=== PATIENT | female | born 1940 | race Caucasian/White ===

== ENCOUNTER 2020-05-19 09:56 | Inpatient (IN) ==
[2020-05-19] MEDS ORDERED: Clindamycin 900 MG/50 ML 900 MG/50 ML IV.SOLN IVPB ONE (10:22)
[2020-05-19] MEDS: Ringers Solution, Lactated 1,000 ML IVC SCH ×2 (10:51→16:29)
[2020-05-19] MEDS ORDERED: Dexamethasone 4 MG/ML VIAL IVP ONE ×2 (11:29→17:31)
[2020-05-19] MEDS ORDERED: Famotidine 20 MG/2 ML VIAL IVP ONE (11:29)
[2020-05-19] MEDS ORDERED: Ondansetron 4 MG/2 ML VIAL IVP ONE (12:10)
[2020-05-19] MEDS ORDERED: *HR* FentaNYL (PF) 100 MCG/2 ML VIAL ONE ×2 (12:13→15:10)
[2020-05-19] MEDS ORDERED: *HR* Rocuronium Bromide 50 MG/5 ML VIAL ONE (12:13)
[2020-05-19] MEDS ORDERED: *HR* Propofol 200 MG/20 ML VIAL IVP ONE (12:13)
[2020-05-19] MEDS ORDERED: Lidocaine -MPF 2% 2 ML VIAL ONE (12:13)
[2020-05-19] MEDS ORDERED: Ondansetron 4 MG/2 ML VIAL ONE ×2 (13:32→16:06)
[2020-05-19] MEDS: *HR* FentaNYL (PF) 100 MCG/2 ML VIAL IVP PRN ×4 (15:26→15:43)
[2020-05-19] MEDS ORDERED: Ondansetron 4 MG/2 ML VIAL IVP PRN ×2 (15:30→17:31)
[2020-05-19] MEDS ORDERED: Ketorolac 15 MG/ML VIAL IVP PRN ×2 (15:30→17:31)
[2020-05-19] MEDS ORDERED: 0.9 % Sodium Chloride 1,000 ML IVC SCH (15:30)
[2020-05-19] MEDS ORDERED: Dexamethasone 4 MG/ML VIAL ONE (16:06)
[2020-05-19] MEDS ORDERED: Ketorolac 30 MG/ML VIAL ONE (16:06)
[2020-05-19] MEDS ORDERED: D5% in Water 500 ML ONE (16:14)
[2020-05-19] MEDS ORDERED: Ringers Solution, Lactated 1,000 ML IVC SCH (17:31)
[2020-05-19] MEDS ORDERED: *HR* FentaNYL (PF) 100 MCG/2 ML VIAL IVP PRN (17:31)
[2020-05-19] MEDS ORDERED: hydroCHLOROthiazide 25 MG TABLET PO PRN (17:31)
[2020-05-19] MEDS ORDERED: Acetaminophen IV 1,000 MG/100 ML INFUS..BTL IVPB SCH (18:00)
[2020-05-19] MEDS: Acetaminophen IV 1,000 MG/100 ML INFUS..BTL IVPB SCH (19:44)
[2020-05-19] MEDS: 0.9 % Sodium Chloride 1,000 ML IVC SCH (19:44)
[2020-05-20] MEDS: Acetaminophen IV 1,000 MG/100 ML INFUS..BTL IVPB SCH ×4 (02:50→20:23)
[2020-05-20 06:58] LABS: Basophils % 0.3 %; Hematocrit 39.6 % (35.3-44.9); Hemoglobin 13.4 g/dL (11.5-15.4); Immature Granulocytes % 0.3 % (0-4); Lymphocytes # 0.7 K/mcL (0.6-4.6); Lymphocytes % 6.5 %; Mean Corpuscular HGB Conc 33.8 g/dL (31.6-35.5); Mean Corpuscular Hemoglobin 32.9 pg (28.0-33.3); Mean Corpuscular Volume 97.3 fL (83.0-100.0); Mean Platelet Volume 9.9 fL (9.4-12.4); Monocytes # 0.7 K/mcL (0.0-1.3); Monocytes % 6.2 %; Neutrophils # 9.6 K/mcL (1.6-8.9); Platelet Count 232 K/mcL (140-400); Red Blood Count 4.07 M/mcL (3.82-4.97); Red Cell Distribution Width 11.9 % (11.5-14.5); Segmented Neutrophils % 86.7 %; White Blood Count 11.1 K/mcL (4.3-11.1)
[2020-05-20 07:21] LABS: BUN/Creatinine Ratio 43 (6-26); Blood Urea Nitrogen 20 mg/dL (8-23); Calcium 9.3 mg/dL (8.6-10.3); Carbon Dioxide 24 mEq/L (23-29); Chloride 107 mEq/L (98-107); Glucose 137 mg/dL (70-105); Osmolality,Calculated 289 (280-300); Potassium 3.4 mEq/L (3.5-5.1); Sodium 137 mEq/L (136-145); eGFR For African Americans > 60 (> 60); eGFR For Non-African Americans > 60 (> 60)
[2020-05-20] MEDS: Loratadine 10 MG TABLET PO SCH (09:54)
[2020-05-20] MEDS: (Potassium 99 MG) PO SCH (09:55)
[2020-05-20] MEDS: UBIDECARENONE 60 MG PO SCH (09:56)
[2020-05-20] MEDS: 0.9 % Sodium Chloride 1,000 ML IVC SCH (17:08)
[2020-05-21 01:52] LABS: BUN/Creatinine Ratio 41 (6-26); Blood Urea Nitrogen 20 mg/dL (8-23); Calcium 9.4 mg/dL (8.6-10.3); Carbon Dioxide 24 mEq/L (23-29); Chloride 109 mEq/L (98-107); Glucose 116 mg/dL (70-105); Osmolality,Calculated 290 (280-300); Potassium 3.5 mEq/L (3.5-5.1); Sodium 138 mEq/L (136-145); eGFR For African Americans > 60 (> 60); eGFR For Non-African Americans > 60 (> 60)
[2020-05-21] MEDS: Acetaminophen IV 1,000 MG/100 ML INFUS..BTL IVPB SCH ×3 (03:25→21:36)
[2020-05-21] MEDS: (Potassium 99 MG) PO SCH (09:18)
[2020-05-21] MEDS: Loratadine 10 MG TABLET PO SCH (09:18)
[2020-05-21] MEDS: UBIDECARENONE 60 MG PO SCH (09:19)
[2020-05-21] MEDS: 0.9 % Sodium Chloride 1,000 ML IVC SCH (09:49)
[2020-05-22] MEDS: Acetaminophen IV 1,000 MG/100 ML INFUS..BTL IVPB SCH ×4 (03:06→20:27)
[2020-05-22] MEDS: 0.9 % Sodium Chloride 1,000 ML IVC SCH (03:06)
[2020-05-22] MEDS: Loratadine 10 MG TABLET PO SCH (08:04)
[2020-05-22] MEDS ORDERED: polyethylene glycoL 3350 17 GM POWD.PACK PO SCH (09:45)
[2020-05-23] MEDS: Acetaminophen IV 1,000 MG/100 ML INFUS..BTL IVPB SCH (03:01)
[2020-05-23 07:37] VITALS: BP 128/84
[2020-05-23] MEDS: Loratadine 10 MG TABLET PO SCH (07:49)
[2020-05-23] MEDS ORDERED: polyethylene glycoL 3350 17 GM POWD.PACK PO SCH (09:00)
== END 2020-05-23 10:30 | disposition home health service (06) | DRG 337 ==
LOC: SAMDAY 09:56 → 3ANU 17:11
PROVIDERS: ADMIT Surgery; ATTEND Surgery

== ENCOUNTER 2020-05-26 18:04 | Inpatient (IN) ==
[2020-05-26 19:04] LABS: Basophils % 0.3 %; Hematocrit 38.4 % (35.3-44.9); Hemoglobin 12.7 g/dL (11.5-15.4); Immature Granulocytes % 1.2 % (0-4); Lymphocytes # 0.6 K/mcL (0.6-4.6); Lymphocytes % 5.8 %; Mean Corpuscular HGB Conc 33.1 g/dL (31.6-35.5); Mean Corpuscular Hemoglobin 31.9 pg (28.0-33.3); Mean Corpuscular Volume 96.5 fL (83.0-100.0); Mean Platelet Volume 9.2 fL (9.4-12.4); Monocytes # 0.9 K/mcL (0.0-1.3); Monocytes % 8.4 %; Neutrophils # 8.7 K/mcL (1.6-8.9); Platelet Count 276 K/mcL (140-400); Red Blood Count 3.98 M/mcL (3.82-4.97); Red Cell Distribution Width 11.8 % (11.5-14.5); Segmented Neutrophils % 84.3 %; White Blood Count 10.3 K/mcL (4.3-11.1)
[2020-05-26 19:35] LABS: Alanine Aminotransferase 19 Units/L (7-52); Albumin 3.2 g/dL (3.5-5.7); Albumin/Globulin Ratio 1.3 (1.1-2.2); Alkaline Phosphatase 73 Units/L (34-104); Aspartate Amino Transferase 13 Units/L (13-39); BUN/Creatinine Ratio 31 (6-26); Bilirubin,Direct 0.2 mg/dL (0.0-0.2); Bilirubin,Indirect 0.4 mg/dL (0.0-1.0); Bilirubin,Total 0.6 mg/dL (0.3-1.0); Blood Urea Nitrogen 13 mg/dL (8-23); Calcium 9.5 mg/dL (8.6-10.3); Carbon Dioxide 23 mEq/L (23-29); Chloride 103 mEq/L (98-107); Globulin 2.5 g/dL (2.4-3.5); Glucose 119 mg/dL (70-105); Lipase 4 Units/L (11-82); Osmolality,Calculated 283 (280-300); Potassium 3.4 mEq/L (3.5-5.1); Sodium 136 mEq/L (136-145); Total Protein 5.7 g/dL (6.4-8.9); eGFR For African Americans > 60 (> 60); eGFR For Non-African Americans > 60 (> 60)
[2020-05-26 19:52] LABS: Bacteria,Urine Many per hpf (None-Few); Bilirubin,Urine Negative (Negative); Blood,Urine Negative (Negative); Calcium Oxalate Crystals,Urine Present; Clarity,Urine Turbid (Clear); Color,Urine Yellow (Yellow); Glucose,Urine (UA) Normal (Normal); Ketones,Urine 80 mg/dL (Negative); Leukocyte Esterase,Urine Large (Negative); Mucus,Urine Many per lpf (None-Few); Nitrite,Urine Negative (Negative); Protein,Urine 50 mg/dL (Neg-Trace); Specific Gravity,Urine 1.024 (1.010-1.025); Squamous Epithelial Cell,Urine Few per hpf (None-Few); Transitional Epi Cells,Urine Few per hpf (None-Few); WBC,Urine 30-50 per hpf (0-3)
[2020-05-26] MEDS ORDERED: Piperacillin/Tazobactam 3.375 GM in Water for inj. (sterile) 20 ML IVP ONE (21:02)
[2020-05-26 21:12] LABS: Adenovirus Not Detected (Not Detect); Bordetella Pertussis Not Detected (Not Detect); Chlamydophila pneumoniae Not Detected (Not Detect); Coronavirus 229E Not Detected (Not Detect); Coronavirus HKU1 Not Detected (Not Detect); Coronavirus NL63 Not Detected (Not Detect); Coronavirus OC43 Not Detected (Not Detect); Human Metapneumovirus Not Detected (Not Detect); Human Rhinovirus/Enterovirus Not Detected (Not Detect); Influenza A Subtype 2009 H1 Not Detected (Not Detect); Influenza B Not Detected (Not Detect); Mycoplasma pneumoniae Not Detected (Not Detect); Parainfluenza Virus 1 Not Detected (Not Detect); Parainfluenza Virus 2 Not Detected (Not Detect); Parainfluenza Virus 3 Not Detected (Not Detect); Parainfluenza Virus 4 Not Detected (Not Detect); Respiratory Syncytial Virus Not Detected (Not Detect)
[2020-05-26 22:48] LABS: Magnesium 1.9 mg/dL (1.6-2.6); Phosphorous 2.3 mg/dL (2.7-4.5)
[2020-05-26] MEDS ORDERED: Naloxone 0.4 MG/ML INJ IVP PRN (23:32)
[2020-05-26 23:43] LABS: Troponin I 0.46 ng/mL (< 0.04)
[2020-05-27] MEDS ORDERED: 0.9 % Sodium Chloride 1,000 ML IVC SCH (02:15)
[2020-05-27 03:01] LABS: Basophils % 0.4 %; Hematocrit 32.9 % (35.3-44.9); Immature Granulocytes % 1.1 % (0-4); Lymphocytes # 0.8 K/mcL (0.6-4.6); Lymphocytes % 9.8 %; Mean Corpuscular HGB Conc 33.7 g/dL (31.6-35.5); Mean Corpuscular Hemoglobin 32.6 pg (28.0-33.3); Mean Corpuscular Volume 96.8 fL (83.0-100.0); Mean Platelet Volume 9.1 fL (9.4-12.4); Monocytes # 0.8 K/mcL (0.0-1.3); Monocytes % 9.3 %; Neutrophils # 6.5 K/mcL (1.6-8.9); Platelet Count 250 K/mcL (140-400); Red Cell Distribution Width 11.8 % (11.5-14.5); Segmented Neutrophils % 79.4 %; White Blood Count 8.2 K/mcL (4.3-11.1)
[2020-05-27 03:10] LABS: Hemoglobin 11.1 g/dL (11.5-15.4)
[2020-05-27] MEDS: Azithromycin 500 MG in 0.9 % Sodium Chloride 250 ML IVPB SCH (03:10)
[2020-05-27 03:11] LABS: INR 1.4; Prothrombin Time 15.7 Seconds (9.4-12.1)
[2020-05-27 03:23] LABS: BUN/Creatinine Ratio 33 (6-26); Blood Urea Nitrogen 13 mg/dL (8-23); Calcium 8.8 mg/dL (8.6-10.3); Carbon Dioxide 23 mEq/L (23-29); Chloride 103 mEq/L (98-107); Glucose 108 mg/dL (70-105); Magnesium 1.9 mg/dL (1.6-2.6); Osmolality,Calculated 283 (280-300); Phosphorous 2.6 mg/dL (2.7-4.5); Potassium 3.3 mEq/L (3.5-5.1); Sodium 136 mEq/L (136-145); eGFR For African Americans > 60 (> 60); eGFR For Non-African Americans > 60 (> 60)
[2020-05-27 03:26] LABS: Troponin I 0.35 ng/mL (< 0.04)
[2020-05-27] MEDS: Piperacillin/Tazobactam 3.375 GM in 0.9 % Sodium Chloride Mini Bag 100 ML IVPB SCH ×3 (05:36→21:21)
[2020-05-27] MEDS ORDERED: Aspirin 325 MG TABLET PO ONE (08:30)
[2020-05-27] MEDS: Lactobacillus 1 EACH CAP.SPRINK PO SCH (09:52)
[2020-05-27] MEDS: Loratadine 10 MG TABLET PO SCH (09:52)
[2020-05-27] MEDS: Ascorbic Acid 500 MG TABLET PO SCH (09:52)
[2020-05-27] MEDS: GLUCOSAMINE HCL 1000 MG PO SCH (09:53)
[2020-05-27] MEDS: UBIDECARENONE 60 MG PO SCH (09:53)
[2020-05-27] MEDS: Fish Oil 1,000 Mg Softgel PO SCH ×2 (09:53→21:22)
[2020-05-27] MEDS: Vitamin E 200 UNIT (90MG) CAPSULE PO SCH (10:14)
[2020-05-27] MEDS: Ondansetron ODT 4 MG TAB.RAPDIS SL PRN (18:16)
[2020-05-27 19:06] LABS: Adenovirus F 40/41 PCR Not detected (Not detect); Astrovirus PCR Not detected (Not detect); C.difficile Toxin A/B Gene PCR Not detected (Not detect); Campylobacter by PCR Not detected (Not detect); Cryptosporidium by PCR Not detected (Not detect); Cyclospora cayetanensis PCR Not detected (Not detect); E. coli O157 by PCR Not detected (Not detect); Entamoeba histolytica PCR Not detected (Not detect); Enteroaggregative E.coli(EAEC) Not detected (Not detect); Enteropathogenic E.coli(EPEC) Not detected (Not detect); Enterotoxigenic E.coli (ETEC) Not detected (Not detect); Giardia lamblia PCR Not detected (Not detect); Norovirus GI/GII PCR Not detected (Not detect); Plesiomonas shigelloides PCR Not detected (Not detect); Rotavirus A PCR Not detected (Not detect); Salmonella PCR Not detected (Not detect); Sapovirus PCR Not detected (Not detect); Shig/EnteroinvasiveE coli EIEC Not detected (Not detect); Shigalike tox-prod E coli STEC Not detected (Not detect); Vibrio PCR Not detected (Not detect); Vibrio cholerae PCR Not detected (Not detect); Yersinia enterocolitica PCR Not detected (Not detect)
[2020-05-28] MEDS: Azithromycin 500 MG in 0.9 % Sodium Chloride 250 ML IVPB SCH (02:59)
[2020-05-28] MEDS: Piperacillin/Tazobactam 3.375 GM in 0.9 % Sodium Chloride Mini Bag 100 ML IVPB SCH ×3 (05:39→21:41)
[2020-05-28 06:05] LABS: Basophils # 0.1 K/mcL (0.0-0.2); Basophils % 0.7 %; Hematocrit 38.9 % (35.3-44.9); Hemoglobin 12.2 g/dL (11.5-15.4); Immature Granulocytes % 1.4 % (0-4); Lymphocytes # 0.6 K/mcL (0.6-4.6); Lymphocytes % 7.5 %; Mean Corpuscular HGB Conc 31.4 g/dL (31.6-35.5); Mean Corpuscular Hemoglobin 31.9 pg (28.0-33.3); Mean Corpuscular Volume 101.8 fL (83.0-100.0); Mean Platelet Volume 9.7 fL (9.4-12.4); Monocytes # 0.8 K/mcL (0.0-1.3); Monocytes % 9.9 %; Neutrophils # 6.7 K/mcL (1.6-8.9); Platelet Count 228 K/mcL (140-400); Red Blood Count 3.82 M/mcL (3.82-4.97); Red Cell Distribution Width 11.9 % (11.5-14.5); Segmented Neutrophils % 80.5 %; White Blood Count 8.3 K/mcL (4.3-11.1)
[2020-05-28 06:20] LABS: Calcium 9.3 mg/dL (8.6-10.3); Potassium 3.7 mEq/L (3.5-5.1)
[2020-05-28] MEDS: Fish Oil 1,000 Mg Softgel PO SCH ×2 (08:39→21:49)
[2020-05-28] MEDS: Lactobacillus 1 EACH CAP.SPRINK PO SCH (08:39)
[2020-05-28] MEDS: Ascorbic Acid 500 MG TABLET PO SCH (08:39)
[2020-05-28] MEDS: GLUCOSAMINE HCL 1000 MG PO SCH (08:39)
[2020-05-28] MEDS: 0.9 % Sodium Chloride 1,000 ML IVC SCH ×2 (08:39→20:55)
[2020-05-28] MEDS: Loratadine 10 MG TABLET PO SCH (08:39)
[2020-05-28] MEDS: UBIDECARENONE 60 MG PO SCH (08:40)
[2020-05-28] MEDS: Vitamin E 200 UNIT (90MG) CAPSULE PO SCH (08:54)
[2020-05-28] MEDS: Ondansetron ODT 4 MG TAB.RAPDIS SL PRN (08:54)
[2020-05-28] MEDS ORDERED: 0.9 % Sodium Chloride 1,000 ML ONE (10:21)
[2020-05-28 14:01] LABS: Calcium 8.9 mg/dL (8.6-10.3); Potassium 3.5 mEq/L (3.5-5.1)
[2020-05-29] MEDS: Piperacillin/Tazobactam 3.375 GM in 0.9 % Sodium Chloride Mini Bag 100 ML IVPB SCH ×2 (05:09→18:39)
[2020-05-29] MEDS: 0.9 % Sodium Chloride 1,000 ML IVC SCH ×2 (05:10→16:05)
[2020-05-29] MEDS ORDERED: Acetaminophen 325 MG TABLET PO PRN (06:28)
[2020-05-29 07:09] LABS: Basophils # 0.1 K/mcL (0.0-0.2); Basophils % 0.7 %; Hematocrit 37.2 % (35.3-44.9); Hemoglobin 12.3 g/dL (11.5-15.4); Immature Granulocytes % 1.8 % (0-4); Lymphocytes # 0.6 K/mcL (0.6-4.6); Lymphocytes % 7.4 %; Mean Corpuscular HGB Conc 33.1 g/dL (31.6-35.5); Mean Corpuscular Hemoglobin 32.2 pg (28.0-33.3); Mean Corpuscular Volume 97.4 fL (83.0-100.0); Mean Platelet Volume 9.2 fL (9.4-12.4); Monocytes # 0.6 K/mcL (0.0-1.3); Monocytes % 7.5 %; Neutrophils # 7.1 K/mcL (1.6-8.9); Platelet Count 327 K/mcL (140-400); Red Blood Count 3.82 M/mcL (3.82-4.97); Segmented Neutrophils % 82.6 %; White Blood Count 8.6 K/mcL (4.3-11.1)
[2020-05-29] MEDS: Loratadine 10 MG TABLET PO SCH (08:05)
[2020-05-29] MEDS: Ascorbic Acid 500 MG TABLET PO SCH (08:05)
[2020-05-29] MEDS: Lactobacillus 1 EACH CAP.SPRINK PO SCH (08:05)
[2020-05-29] MEDS: Vitamin E 200 UNIT (90MG) CAPSULE PO SCH (08:05)
[2020-05-29] MEDS: GLUCOSAMINE HCL 1000 MG PO SCH (08:06)
[2020-05-29] MEDS: UBIDECARENONE 60 MG PO SCH (08:06)
[2020-05-29] MEDS: Fish Oil 1,000 Mg Softgel PO SCH (08:06)
[2020-05-29 08:26] LABS: Potassium 3.4 mEq/L (3.5-5.1)
[2020-05-29 11:53] LABS: Uric Acid 4.4 mg/dL (2.3-7.6)
[2020-05-29 13:58] LABS: Bilirubin,Urine Negative (Negative); Blood,Urine Negative (Negative); Clarity,Urine Clear (Clear); Color,Urine Light-Yellow (Yellow); Glucose,Urine (UA) Normal (Normal); Ketones,Urine Negative (Negative); Leukocyte Esterase,Urine Negative (Negative); Nitrite,Urine Negative (Negative); Protein,Urine Trace mg/dL (Neg-Trace); Urobilinogen,Urine Normal (Normal)
[2020-05-29] MEDS: Ondansetron ODT 4 MG TAB.RAPDIS SL PRN (18:39)
[2020-05-29 20:35] LABS: Protein/Creatinine Ratio,Urine 0.27 mg/mg (0.00-0.20)
[2020-05-30] MEDS: 0.9 % Sodium Chloride 1,000 ML IVC SCH ×3 (05:12→18:16)
[2020-05-30] MEDS: Piperacillin/Tazobactam 3.375 GM in 0.9 % Sodium Chloride Mini Bag 100 ML IVPB SCH ×2 (05:12→18:16)
[2020-05-30 09:30] LABS: Magnesium 1.9 mg/dL (1.6-2.6); Potassium 3.2 mEq/L (3.5-5.1)
[2020-05-30] MEDS: Loratadine 10 MG TABLET PO SCH (10:43)
[2020-05-30] MEDS: Ascorbic Acid 500 MG TABLET PO SCH (10:43)
[2020-05-30] MEDS: Lactobacillus 1 EACH CAP.SPRINK PO SCH (10:44)
[2020-05-30] MEDS: Vitamin E 200 UNIT (90MG) CAPSULE PO SCH (11:03)
[2020-05-30] MEDS: *HR* Heparin 5,000 UNIT/ML VIAL SQ SCH (18:15)
[2020-05-31] MEDS: 0.9 % Sodium Chloride 1,000 ML IVC SCH ×2 (01:14→09:22)
[2020-05-31] MEDS: *HR* Heparin 5,000 UNIT/ML VIAL SQ SCH ×2 (06:07→17:33)
[2020-05-31] MEDS: Piperacillin/Tazobactam 3.375 GM in 0.9 % Sodium Chloride Mini Bag 100 ML IVPB SCH ×2 (06:08→17:29)
[2020-05-31 06:57] LABS: Calcium 8.4 mg/dL (8.6-10.3); Potassium 3.4 mEq/L (3.5-5.1)
[2020-05-31] MEDS: Lactobacillus 1 EACH CAP.SPRINK PO SCH (08:44)
[2020-05-31] MEDS: Ascorbic Acid 500 MG TABLET PO SCH (08:44)
[2020-05-31] MEDS: Vitamin E 200 UNIT (90MG) CAPSULE PO SCH (08:44)
[2020-05-31] MEDS: Loratadine 10 MG TABLET PO SCH (08:45)
[2020-06-01] MEDS: *HR* Heparin 5,000 UNIT/ML VIAL SQ SCH (05:30)
[2020-06-01] MEDS: Piperacillin/Tazobactam 3.375 GM in 0.9 % Sodium Chloride Mini Bag 100 ML IVPB SCH (05:30)
[2020-06-01 06:25] LABS: Calcium 8.9 mg/dL (8.6-10.3); Potassium 3.4 mEq/L (3.5-5.1)
[2020-06-01] MEDS: 0.9 % Sodium Chloride 1,000 ML IVC SCH ×2 (09:06→10:16)
[2020-06-01] MEDS: Ascorbic Acid 500 MG TABLET PO SCH (09:20)
[2020-06-01] MEDS: Loratadine 10 MG TABLET PO SCH (09:20)
[2020-06-01] MEDS: Vitamin E 200 UNIT (90MG) CAPSULE PO SCH (09:20)
[2020-06-01] MEDS: Lactobacillus 1 EACH CAP.SPRINK PO SCH (09:20)
[2020-06-01 10:19] VITALS: BP 116/66
== END 2020-06-01 16:38 | disposition home health service (06) | DRG 193 ==
LOC: EMEROOARM 18:04 → 3ANU 18:04 → SUATTDRO 22:17 → 3ANU 23:21
PROVIDERS: ADMIT Family Medicine; ATTEND Family Medicine

== ENCOUNTER 2020-06-06 14:15 | Inpatient (IN) ==
[2020-06-06] MEDS ORDERED: Isovue-370 500 ML BOTTLE IVP ONE (15:15)
[2020-06-06 17:44] LABS: Basophils # 0.1 K/mcL (0.0-0.2); Basophils % 0.8 %; Hematocrit 33.8 % (35.3-44.9); Hemoglobin 11.5 g/dL (11.5-15.4); Immature Granulocytes % 1.6 % (0-4); Lymphocytes # 0.6 K/mcL (0.6-4.6); Lymphocytes % 5.3 %; Mean Corpuscular Hemoglobin 32.6 pg (28.0-33.3); Mean Corpuscular Volume 95.8 fL (83.0-100.0); Mean Platelet Volume 8.9 fL (9.4-12.4); Monocytes # 0.7 K/mcL (0.0-1.3); Monocytes % 6.8 %; Platelet Count 400 K/mcL (140-400); Red Blood Count 3.53 M/mcL (3.82-4.97); Red Cell Distribution Width 13.1 % (11.5-14.5); Segmented Neutrophils % 85.5 %; White Blood Count 10.5 K/mcL (4.3-11.1)
[2020-06-06 17:48] LABS: INR 1.2; Prothrombin Time 13.6 Seconds (9.4-12.1)
[2020-06-06 17:50] LABS: Activated Partial Thrombo Time 25.9 Seconds (26.0-36.0)
[2020-06-06 18:20] LABS: Albumin 3.1 g/dL (3.5-5.7); Albumin/Globulin Ratio 1.3 (1.1-2.2); Bilirubin,Direct 0.1 mg/dL (0.0-0.2); Bilirubin,Indirect 0.3 mg/dL (0.0-1.0); Bilirubin,Total 0.4 mg/dL (0.3-1.0); Calcium 9.1 mg/dL (8.6-10.3); Globulin 2.4 g/dL (2.4-3.5); Potassium 2.2 mEq/L (3.5-5.1); Total Protein 5.5 g/dL (6.4-8.9); Troponin I 0.08 ng/mL (< 0.04)
[2020-06-06] MEDS ORDERED: Potassium Chloride 40 MEQ, Lidocaine 1% 2 ML in 0.9 % Sodium Chloride 500 ML IVPB ONE (18:23)
[2020-06-06 18:30] LABS: Bacteria,Urine Few per hpf (None-Few); Bilirubin,Urine Negative (Negative); Blood,Urine Trace (Negative); Clarity,Urine Clear (Clear); Color,Urine Light-Yellow (Yellow); Glucose,Urine (UA) Normal (Normal); Hyaline Casts,Urine Many per lpf (None Seen); Ketones,Urine Negative (Negative); Leukocyte Esterase,Urine Trace (Negative); Mucus,Urine Few per lpf (None-Few); Nitrite,Urine Negative (Negative); Protein,Urine Trace mg/dL (Neg-Trace); RBC,Urine 0-3 per hpf (0-3); Renal Epithelial Cells,Urine Few per hpf (None-Few); Specific Gravity,Urine 1.011 (1.010-1.025); Sperm,Urine Present (None Seen); Squamous Epithelial Cell,Urine Few per hpf (None-Few); Urobilinogen,Urine Normal (Normal)
[2020-06-06] MEDS ORDERED: *HR* Promethazine 25 MG/ML VIAL IVP PRN (22:28)
[2020-06-06] MEDS ORDERED: Naloxone 0.4 MG/ML INJ IVP PRN (22:28)
[2020-06-06] MEDS ORDERED: 0.9 % Sodium Chloride 1,000 ML IVC SCH (22:30)
[2020-06-06] MEDS ORDERED: Furosemide 20 MG/2 ML VIAL IVP ONE (23:48)
[2020-06-07] MEDS ORDERED: Perflutren Lipid Microsphere 1.3 ML in 0.9 % Sodium Chloride 8.7 ML IVP PRN (00:01)
[2020-06-07] MEDS ORDERED: Potassium Chloride 40 MEQ, Lidocaine 1% 2 ML in 0.9 % Sodium Chloride 500 ML IVPB ONE (00:14)
[2020-06-07] MEDS ORDERED: *HR* OxyCODONE Immed Rel 5 MG TABLET PO PRN (00:22)
[2020-06-07] MEDS ORDERED: Ipratropium/Albuterol Neb 3 ML IH PRN (00:23)
[2020-06-07 05:56] LABS: Basophils # 0.1 K/mcL (0.0-0.2); Basophils % 0.9 %; Eosinophils # 0.4 K/mcL (0.0-0.6); Hematocrit 33.2 % (35.3-44.9); Hemoglobin 10.8 g/dL (11.5-15.4); Immature Granulocytes % 1.8 % (0-4); Lymphocytes # 0.6 K/mcL (0.6-4.6); Lymphocytes % 6.8 %; Mean Corpuscular HGB Conc 32.5 g/dL (31.6-35.5); Mean Corpuscular Hemoglobin 32.1 pg (28.0-33.3); Mean Corpuscular Volume 98.8 fL (83.0-100.0); Mean Platelet Volume 9.6 fL (9.4-12.4); Monocytes # 0.6 K/mcL (0.0-1.3); Monocytes % 6.9 %; Neutrophils # 6.9 K/mcL (1.6-8.9); Platelet Count 355 K/mcL (140-400); Red Blood Count 3.36 M/mcL (3.82-4.97); Segmented Neutrophils % 79.6 %; White Blood Count 8.7 K/mcL (4.3-11.1)
[2020-06-07 05:59] LABS: INR 1.3; Prothrombin Time 14.2 Seconds (9.4-12.1)
[2020-06-07 06:17] LABS: Calcium 8.7 mg/dL (8.6-10.3); Magnesium 1.6 mg/dL (1.6-2.6); Phosphorous 2.5 mg/dL (2.7-4.5); Potassium 3.2 mEq/L (3.5-5.1)
[2020-06-07] MEDS: Lactobacillus 1 EACH CAP.SPRINK PO SCH ×2 (09:24→09:25)
[2020-06-07] MEDS: Loratadine 10 MG TABLET PO SCH (09:25)
[2020-06-07] MEDS: Furosemide 20 MG/2 ML VIAL IVP SCH ×2 (09:26→18:15)
[2020-06-07] MEDS: *HR* Heparin 5,000 UNIT/ML VIAL SQ SCH (18:15)
[2020-06-08] MEDS: *HR* Heparin 5,000 UNIT/ML VIAL SQ SCH ×2 (05:47→17:25)
[2020-06-08 08:53] LABS: Calcium 8.5 mg/dL (8.6-10.3); Magnesium 1.4 mg/dL (1.6-2.6); Phosphorous 2.5 mg/dL (2.7-4.5); Potassium 2.8 mEq/L (3.5-5.1)
[2020-06-08] MEDS: Lactobacillus 1 EACH CAP.SPRINK PO SCH (09:02)
[2020-06-08] MEDS: Loratadine 10 MG TABLET PO SCH (09:02)
[2020-06-08] MEDS: Furosemide 20 MG/2 ML VIAL IVP SCH ×2 (09:02→17:26)
[2020-06-08] MEDS ORDERED: Magnesium Sulfate 1 GM/102 ML PIGGYBACK IVPB ONE (10:41)
[2020-06-09] MEDS: *HR* Heparin 5,000 UNIT/ML VIAL SQ SCH (06:18)
[2020-06-09] MEDS ORDERED: Potassium Phosphate 44 MEQ in 0.9 % Sodium Chloride 250 ML IVPB ONE (07:33)
[2020-06-09] MEDS ORDERED: Magnesium Sulfate 1 GM/102 ML PIGGYBACK IVPB ONE (07:34)
[2020-06-09] MEDS ORDERED: Magnesium Oxide 400 MG TABLET PO SCH (09:00)
[2020-06-09] MEDS ORDERED: Potassium Chloride Elixir 20 MEQ/15 ML UDC PO SCH (09:00)
[2020-06-09] MEDS: Lactobacillus 1 EACH CAP.SPRINK PO SCH (09:16)
[2020-06-09] MEDS: Furosemide 20 MG/2 ML VIAL IVP SCH (09:16)
[2020-06-09] MEDS: Loratadine 10 MG TABLET PO SCH (09:16)
[2020-06-09 10:03] LABS: BUN/Creatinine Ratio 8 (6-26); Blood Urea Nitrogen 8 mg/dL (8-23); Carbon Dioxide 28 mEq/L (23-29); Chloride 103 mEq/L (98-107); Glucose 126 mg/dL (70-105); Magnesium 1.4 mg/dL (1.6-2.6); Osmolality,Calculated 288 (280-300); Phosphorous 3.8 mg/dL (2.7-4.5); Potassium 2.9 mEq/L (3.5-5.1); Sodium 139 mEq/L (136-145); eGFR For African Americans > 60 (> 60); eGFR For Non-African Americans 54 (> 60)
[2020-06-09 17:45] VITALS: BP 133/80
[2020-06-10] MEDS ORDERED: Potassium Chloride Elixir 20 MEQ/15 ML UDC PO SCH (09:00)
== END 2020-06-09 19:53 | disposition home health service (06) | DRG 989 ==
LOC: 3ANU 14:15 → EMEROOARM 14:15 → SUATTDRO 21:01 → 3ANU 22:19 → UNDODISIN 06-07 23:15
PROVIDERS: ADMIT Family Medicine; ATTEND Internal Medicine
PROC: IRDRAIN (2020-06-07 13:00)